=== PATIENT | male | born 1990 | race Caucasian/White ===

== ENCOUNTER 2022-08-05 08:38 | Emergency (ER) | payer BC, OTHER ==
[2022-08-05] MEDS ORDERED: Amoxicillin/Clavulanate K 875-125 MG Tab ONE (09:30)
== END 2022-08-05 09:39 | disposition home or self-care (01) ==
LOC: LB.ED 08:38
DX: J02.0 Streptococcal pharyngitis (principal)
CPT/HCPCS: 99282; A9270-GY